=== PATIENT | female | born 1995 | race Two or more races ===

== ENCOUNTER 2024-11-30 19:17 | Emergency (ER) | payer MEDICAID, SELFPAY ==
[2024-11-30 19:18] VITALS: BMI 36.1
--- NOTE | 2024-11-30 19:22 | EKG_ITS ---
[facility] Test Date: 2024-11-30 Pat Name: JUSTA MARSH Department: Room: - Gender: Female Oil Operator: : 1995 Requested By: ED Temporary Provider Order Number: [id number] Reading MD: ED Temporary Provider Measurements Intervals [place] Rate: 78 P: 36 WA: 174 QRS: 45 QRSD: 97 T: 31 QT: 385 QTc: 441 Interpretive Statements SINUS RHYTHM No previous ECG available for comparison /store/S0/[id number].pdf
[2024-11-30 19:54] VITALS: BP 127/84; PULSE 78; RESP 18; TEMP 37; O2SAT 98
--- NOTE | 2024-11-30 20:01 | EDNOTE_ITS ---
<Statement entered by Virginia Worley MD - 12/02/24 18:56> As co-signing physician, I was present and available for consult prn. I concur with the plan and care as documented by the midlevel provider. ED Chest Pain RME/HPI General Chief Complaint: Chest Pain Stated Complaint: L upper chest pain Time Seen by Provider: 11/30/24 20:06 Source: patient Arrival date/time: 11/30/24 19:17 Mode of arrival: ambulatory Limitations: no limitations RME / HPI RME / HPI narrative: 29-year-old female presents to the ED with a complaint of chest pain that is intermittent x 2 days. complaint: chest pain Onset (ago): day(s) (2 DAYS) Duration: intermittent Onset: during rest Pain location: left chest Severity: moderate Severity scale (1-10): 5 Related Data On Oral Contraceptives: No Previous Rx's ?Medication ?Instructions ?Recorded hydrocodone 5 mg-acetaminophen 325 1 tab PO QID PRN pa in #20 tabs 05/30/20 mg tablet ibuprofen 800 mg tablet 800 mg PO TID PRN pain #30 t abs 07/17/23 Allergies Allergy/AdvReac Type Severity Reaction Status Date / Time No Known Allergies Allergy Verified 11/30/24 19:22 Review of Systems Constitutional Constitutional: Reports system reviewed and no additional complaints, except as documented Eyes Eyes: Reports system reviewed and no additional complaints, except as documented , Denies dry eyes, Denies exophthalmos and Reports floaters Cardiovascular Cardiovascular: Denies chest pain with activity and Denies claudication ED Exam General Limitations: Present no limitations General appearance: Present alert and in no apparent distress Head Head exam: Present atraumatic Eye Eye exam: Present normal appearance, PERRL and EOMI ENT ENT exam: Present normal exam, normal oropharynx and mucous membranes moist Neck Neck exam: Present normal inspection, full ROM and trachea midline Chest Chest inspection: Present normal inspection and symmetric chest wall rise Respiratory Respiratory exam: Present normal lung sounds bilaterally Cardiovascular Cardiovascular exam: Present regular rate, normal rhythm and normal heart sounds Abdominal Exam Abdominal exam: Present soft and normal bowel sounds Extremities Exam Extremities exam: Present normal inspection, full ROM and normal capillary refill Back Exam Back exam: Present normal inspection and full ROM Neurological Exam Neurological exam: Present alert and oriented X3 Psychiatric Psychiatric exam: Present normal affect and normal mood Skin Skin exam: Present warm, dry, intact and normal color Course Course Course Narrative: Patient will have a cardiac workup Quality Measures none (N/A) Orders Category Date Time Status EKG (ED ONLY) *Do not use* NOW Care 11/30/24 19:22 Completed EKG (ED Only) Stat Exams 11/30/24 19:22 Draft XR chest 2V Stat Exams 11/30/24 20:04 Completed B-Type Natriuretic Peptide Stat Lab 11/30/24 20:15 Completed CBC Stat Lab 11/30/24 20:15 Completed Comprehensive Metabolic Panel Stat Lab 11/30/24 20:15 Completed Drug Screen,Urine Stat Lab 11/30/24 20:45 Completed HCG Qualitative,Urine Stat Lab 11/30/24 20:45 Completed LDH (Lactate Dehydrogenase) Stat Lab 11/30/24 20:15 Completed Magnesium Stat Lab 11/30/24 20:15 Completed Partial Thromboplastin Time Stat Lab 11/30/24 20:15 Completed Prothrombin Time with INR Stat Lab 11/30/24 20:15 Completed Troponin I Stat Lab 11/30/24 20:15 Completed Urinalysis Stat Lab 11/30/24 20:45 Completed Done Vital Signs Vital signs: Vital Signs Temperature 98.6 F 11/30/24 19:54 Pulse Rate 78 11/30/24 19:54 Respiratory Rate 18 11/30/24 19:54 Blood Pressure 127/84 11/30/24 19:54 Pulse Oximetry (%) 98 11/30/24 19:54 Oxygen Delivery Method Room Air 11/30/24 19:54 Pulse ox is 98% room air Chest Pain MDM Narrative MDM Narrative:: All cardiac labs are within the normal limits and the patient will be discharged in no apparent distress Patient data External records reviewed:: Other (specify) (N/A) Clinical information provided by:: none (N/A) Social determinants that could affect healthcare access:: none (N/A) Patient has the following chronic illnesses:: N/A How is presenting disease/condition affected by chronic disease/condition?: no chronic disease (Negative for chronic disease) Evaluation data The following diagnostics were reviewed and interpreted by me:: other (specify) (All labs were negative) Lab and/or radiology exams considered but not ordered:: N/A Interpretation Summary: N/A Medications / Prescriptions Medications or Prescriptions considered but not ordered:: N/A Medication administrations:: N/A Consultations Consultation(s) initiated? (list below): No Diagnosis Chest Pain Differential Diagnosis: pneumothorax, unstable angina pectoris and atypical chest pain Most likely diagnosis given after review of the tests above:: N/A Admission Indicated Admission indicated?: not indicated Admission Request Was there a request for admission?: No Disposition Plan Disposition Plan: Discharge Discharge Attestation Discharge Attestation: The patient and all family members were given an opportunity to ask questions and understood the discharge instructions. Discharge instructions specifically effects, indications for sooner follow up or return to the emergency department, and the expected course of current diagnosis. Patient condition: Stable Discharge Plan Plan Patient Disposition: HOME (Self Care) Discharge Disposition comment: Discharge in no apparent distress Patient condition on transfer: Stable Prescriptions/Referrals Prescriptions/Med Rec: No Action hydrocodone-acetaminophen 5-325 mg tablet 1 tab PO QID MDD 4 PRN (Reason: pain) Qty: 20 0RF ibuprofen 800 mg tablet 800 mg PO TID PRN (Reason: pain) Qty: 30 0RF Referrals: No Primary/Family,Physician [Primary Care Provider] - In 1 week Problem List Clinical Impression: Acute costochondritis Patient/Caregiver Discharge Instructions Discharge Activity: activity as tolerated Education Materials: Costochondritis, ED Chest Wall Pain, Costochondritis Print Language: Malay Stand Alone Forms: Jolene Award Info., Patient Portal Info Letter PA/BUTTER MELTER Supervising Physician PA/BUTTER MELTER Supervising Physician: Brunilda
--- NOTE | 2024-11-30 20:04 | XR_ITS ---
Examination: PA lateral chest 2 views. TECHNIQUE: Upright PA and lateral chest 2 views. Date and time: November 30, 2024, 8:13 PM. INDICATIONS: Left-sided chest pain beginning 2 days ago. FINDINGS: Normal heart size. The lungs are clear. Mild osteopenia. IMPRESSION: No active disease.
[2024-11-30 20:49] LABS: Basophils # (Auto) 0.1 Thou/mm3 (0.0-0.2); Basophils % (Auto) 1 % (0-2.5); Eosinophils # (Auto) 0.2 Thou/mm3 (0.0-0.5); Eosinophils % (Auto) 2 % (0-10); Hematocrit 39.8 % (36.0-46.0); Hemoglobin 13.8 g/dL (12.0-16.0); Immature Granulocytes % (Auto) 0 % (0-0); Immature Granulocytes Auto 0.03 Thou/mm3 (0.00-0.00); Lymphocytes # (Auto) 2.8 Thou/mm3 (1.0-4.8); Lymphocytes % (Auto) 33 % (10-50); Mean Corpuscular HGB Conc 34.7 g/dl (31.0-37.0); Mean Corpuscular Hemoglobin 29.2 pg (25.0-35.0); Mean Corpuscular Volume 84 fL (80-100); Monocytes # (Auto) 0.7 Thou/mm3 (0.0-0.8); Monocytes % (Auto) 8 % (0-12); Neutrophils # (Auto) 4.8 Thou/mm3 (1.8-7.7); Neutrophils % (Auto) 56 % (37-80); Nucleated Red Blood Cell % 0 /100 WBC (0); Platelet Count 241 Thou/mm3 (140-440); RDW Standard Deviation 41.5 fL (36.4-46.3); Red Blood Count 4.72 Miln/mm3 (4.00-5.20); White Blood Count 8.6 Thou/mm3 (3.6-11.0)
[2024-11-30 21:03] LABS: INR 1.1 (0.9-1.3); Partial Thromboplastin Time 23.2 Seconds (22.0-36.0)
[2024-11-30 21:05] LABS: B-Type Natriuretic Peptide < 20 pg/mL (0-100)
[2024-11-30 21:06] LABS: Alanine Aminotransferase 11 U/L (10-49); Albumin/Globulin Ratio 1.6 (1.2-2.2); Alkaline Phosphatase 57 U/L (46-116); Anion Gap 8 (7-16); Aspartate Amino Transferase 16 U/L (0-34); BUN/Creatinine Ratio 11 Ratio (12-20); Bilirubin,Total 0.2 mg/dL (0.3-1.2); Blood Urea Nitrogen 9 mg/dL (9-23); Calcium 8.7 mg/dL (8.3-10.6); Calcium (Corrected) 8.7 mg/dL (8.5-10.1); Chloride 105 mMol/L (98-107); Creatinine (Component) 0.8 mg/dL (0.6-1.3); Estimated Creatinine Clearance 122.6 mL/min (>60); Globulin 2.5 gm/dL (2.3-3.5); Glucose 80 mg/dL (74-106); LDH (Lactate Dehydrogenase) 202 U/L (120-246); Osmolality,Calculated 275 (275-295); Sodium 139 mMol/L (136-145); Total Protein 6.5 gm/dL (5.7-8.2); Troponin I < 0.002 ng/mL (0.0-0.045); eGFR > 60 See Note
[2024-11-30 21:12] LABS: Collection Type, Urine Clean Catch; RBC,Urine 0 /hpf (0-3)
[2024-11-30 21:21] LABS: HCG Qualitative,Urine Negative
[2024-11-30 21:28] LABS: Bacteria,Urine Rare; Bilirubin,Urine Negative (Negative); Blood,Urine Negative (Negative); Clarity,Urine Turbid (Clear/Hazy); Color,Urine Yellow (Lt Yel-Yel); Glucose, Urine Negative (Negative); Ketones,Urine Negative (Negative); Leukocyte Esterase,Urine Positive (Negative); Nitrite,Urine Negative (Negative); PH,Urine 5.5 (5.0-7.0); Protein,Urine Trace (Neg - Trace); Specific Gravity,Urine 1.035 (1.001-1.035); Squamous Epithelial Cell,Urine 25 /hpf (0-5); Urobilinogen,Urine Negative mg/dL (0.0-1.0); WBC,Urine 5 /hpf (0-5)
[2024-11-30 21:30] LABS: Amphetamine/Methamp Scrn,U Negative (Negative); Barbiturate Screen,Urine Negative (Negative); Benzodiazepines Screen,Urine Negative (Negative); Benzoylecgonine Screen, Ur Negative (Negative); Fentanyl Screen,Urine Negative (Negative); Opiate Screen,Urine Negative (Negative); THC Screen,Urine Positive (Negative)
== END 2024-11-30 22:17 | disposition home or self-care (01) ==
PROVIDERS: Physician Assistant; Emergency Provider Emergency Medicine
DX: M94.0 Chondrocostal junction syndrome [Tietze] (principal)
CPT/HCPCS: 36415; 71046; 80053; 80307; 81001; 81025; 83615; 83735; 83880; 84484; 85025; 85610; 85730; 93005; 99283